=== PATIENT | female | born 1985 | race Caucasian/White ===

== ENCOUNTER 2022-05-03 13:57 | Inpatient (IN) | payer OTHER ==
[2022-05-03 15:41] VITALS: BMI 20.5
[2022-05-03] MEDS ORDERED: NALOXONE HCL (KLOXXADO) 8 MG SPRAY NS PRN (20:08)
[2022-05-03] MEDS ORDERED: LORazepam 1 MG TABLET PO PRN (20:08)
[2022-05-03] MEDS ORDERED: POLYETHYLENE GLYCOL (HEALTHYLAX) 3350 17 GM PACKET PO PRN (20:08)
[2022-05-03] MEDS ORDERED: IBUPROFEN 400 MG TABLET (FP) PO PRN (20:08)
[2022-05-03] MEDS ORDERED: MAGNESIUM HYDROX 2400MG/30ML ORAL SUSPENSION 30 ML CUP PO PRN (20:08)
[2022-05-03] MEDS ORDERED: ACETAMINOPHEN 325 MG TABLET (FP) PO PRN (20:08)
[2022-05-03] MEDS ORDERED: BISMUTH SUBSALICYLATE 524 MG/30 ML PO PRN (20:08)
[2022-05-03] MEDS ORDERED: LOPERAMIDE HCL 2 MG CAPSULE PO PRN (20:08)
[2022-05-03] MEDS ORDERED: MAG HYDROX/AL HYDROX/SIMETH 30 ML UNIT-DOSE CUP PO PRN (20:08)
[2022-05-03] MEDS ORDERED: DICYCLOMINE HCL 10 MG CAPSULE PO PRN (20:08)
[2022-05-03] MEDS ORDERED: ONDANSETRON *ODT* 4 MG TABLET SL PRN (20:08)
[2022-05-03] MEDS ORDERED: LORazepam 2 MG TABLET ONE (20:22)
[2022-05-03] MEDS: LORazepam 2 MG TABLET PO SCH ×2 (20:26→22:21)
[2022-05-03] MEDS: ALBUTEROL SO4 HFA INHALER IH SCH (20:49)
[2022-05-03] MEDS: ACETAMINOPHEN 325 MG TABLET (FP) PO PRN (20:57)
[2022-05-03] MEDS: NICOTINE POLACRILEX 4 MG GUM BUC PRN (21:30)
[2022-05-03] MEDS: THIAMINE HCL 100 MG TABLET (FP) PO SCH (22:20)
[2022-05-03] MEDS: MELATONIN 5 MG TABLETS PO SCH (22:20)
[2022-05-03] MEDS: levETIRAcetam 500 MG TABLET (FP) PO SCH (22:21)
[2022-05-03] MEDS: METHOCARBAMOL 500 MG TABLET PO PRN (22:22)
[2022-05-03] MEDS: hydrOXYzine PAMOATE 25 MG CAPSULE (FP) PO PRN (22:22)
[2022-05-04] MEDS: ALBUTEROL SO4 HFA INHALER IH SCH ×3 (02:20→13:46)
[2022-05-04] MEDS: LORazepam 2 MG TABLET PO SCH ×4 (05:20→22:12)
[2022-05-04] MEDS: hydrOXYzine PAMOATE 25 MG CAPSULE (FP) PO PRN (05:21)
[2022-05-04] MEDS: METHOCARBAMOL 500 MG TABLET PO PRN (05:21)
[2022-05-04] MEDS: NICOTINE POLACRILEX 2 MG GUM BUC PRN ×3 (05:24→23:12)
[2022-05-04] MEDS: BENZOCAINE/MENTHOL (CHLORASEPTIC ) LOZENGE MM PRN ×3 (05:24→23:11)
[2022-05-04] MEDS ORDERED: methaDONE HCL 10 MG TABLET PO ONE (10:04)
[2022-05-04] MEDS: levETIRAcetam 500 MG TABLET (FP) PO SCH ×2 (10:31→22:11)
[2022-05-04] MEDS: PRENATAL VITAMINS W/ FOLIC ACID TABLET (FP) PO SCH (10:31)
[2022-05-04] MEDS: NICOTINE POLACRILEX 4 MG GUM BUC PRN ×2 (10:35→14:36)
[2022-05-04] MEDS ORDERED: ALBUTEROL SO4 HFA INHALER IH PRN (18:44)
[2022-05-04] MEDS ORDERED: OLANZapine 10 MG TABLET PO SCH (22:00)
[2022-05-04] MEDS: MELATONIN 5 MG TABLETS PO SCH (22:11)
[2022-05-04] MEDS: OLANZapine 10 MG TABLET PO SCH (22:12)
[2022-05-04] MEDS: THIAMINE HCL 100 MG TABLET (FP) PO SCH (22:12)
[2022-05-05] MEDS: LORazepam 1 MG TABLET PO SCH ×4 (06:19→22:24)
[2022-05-05] MEDS: ACETAMINOPHEN 325 MG TABLET (FP) PO PRN (06:22)
[2022-05-05] MEDS: NICOTINE POLACRILEX 4 MG GUM BUC PRN ×4 (06:23→22:26)
[2022-05-05] MEDS ORDERED: methaDONE HCL 40 MG DISPERSABLE TABLET PO ONE (09:24)
[2022-05-05] MEDS: levETIRAcetam 500 MG TABLET (FP) PO SCH ×2 (10:06→22:22)
[2022-05-05] MEDS: PRENATAL VITAMINS W/ FOLIC ACID TABLET (FP) PO SCH (10:06)
[2022-05-05] MEDS: hydrOXYzine PAMOATE 25 MG CAPSULE (FP) PO PRN ×2 (10:06→22:23)
[2022-05-05] MEDS: BENZOCAINE/MENTHOL (CHLORASEPTIC ) LOZENGE MM PRN ×3 (10:43→22:50)
[2022-05-05 11:18] LABS: HEMATOCRIT 34.2 % (32.4-45.2); MCH 25.8 pg (25.7-33.7); MCHC 32.1 g/dl (32.0-36.0); MEAN CELL VOLUME 80.2 fl (80-96); MEAN PLT VOLUME 8.5 fl (7.5-11.1); PLATELET COUNT 345 10^3/uL (134-434); RBC 4.26 M/mm3 (3.60-5.2); RDW 14.9 % (11.6-15.6); WHITE BLOOD COUNT 6.2 K/mm3 (4.0-10.0)
[2022-05-05 11:57] LABS: BLOOD UREA NITROGEN 6.5 mg/dL (7-18); CALCIUM 9.3 mg/dL (8.5-10.1); SYPHILIS W/ RPR CONF NON-REACTIVE (NONREACTIVE)
[2022-05-05 11:58] LABS: ALBUMIN 3.2 g/dl (3.4-5.0)
[2022-05-05 12:01] LABS: CREATININE 0.7 mg/dL (0.55-1.3)
[2022-05-05 12:02] LABS: BILIRUBIN,TOTAL 0.2 mg/dL (0.2-1); TOT PROT 7.6 g/dl (6.4-8.2)
[2022-05-05 14:42] LABS: HIV INTERPRETATION NEGATIVE (NEGATIVE)
[2022-05-05] MEDS: NICOTINE POLACRILEX 2 MG GUM BUC PRN (20:34)
[2022-05-05] MEDS: OLANZapine 10 MG TABLET PO SCH (22:23)
[2022-05-05] MEDS: MELATONIN 5 MG TABLETS PO SCH (22:24)
[2022-05-05] MEDS: THIAMINE HCL 100 MG TABLET (FP) PO SCH (22:25)
[2022-05-06] MEDS ORDERED: LORazepam 0.5 MG TABLET PO PRN
[2022-05-06] MEDS: LORazepam 0.5 MG TABLET PO SCH ×4 (06:06→22:31)
[2022-05-06] MEDS: methaDONE HCL 40 MG DISPERSABLE TABLET PO SCH (06:07)
[2022-05-06] MEDS: NICOTINE POLACRILEX 4 MG GUM BUC PRN (06:10)
[2022-05-06] MEDS: ACETAMINOPHEN 325 MG TABLET (FP) PO PRN (06:10)
[2022-05-06] MEDS: NICOTINE POLACRILEX 2 MG GUM BUC PRN ×2 (08:52→12:57)
[2022-05-06] MEDS: levETIRAcetam 500 MG TABLET (FP) PO SCH ×2 (10:46→22:28)
[2022-05-06] MEDS: PRENATAL VITAMINS W/ FOLIC ACID TABLET (FP) PO SCH (10:46)
[2022-05-06] MEDS: METHOCARBAMOL 500 MG TABLET PO PRN ×2 (10:46→17:38)
[2022-05-06] MEDS: LACTULOSE 20 GM/30 ML UDC (FOR ORAL USE ONLY) PO SCH ×4 (10:47→22:29)
[2022-05-06] MEDS: BENZOCAINE/MENTHOL (CHLORASEPTIC ) LOZENGE MM PRN (12:54)
[2022-05-06] MEDS: IBUPROFEN 600 MG TABLET (FP) PO PRN (18:51)
[2022-05-06] MEDS: THIAMINE HCL 100 MG TABLET (FP) PO SCH (22:26)
[2022-05-06] MEDS: hydrOXYzine PAMOATE 25 MG CAPSULE (FP) PO PRN (22:26)
[2022-05-06] MEDS: MELATONIN 5 MG TABLETS PO SCH (22:27)
[2022-05-06] MEDS: OLANZapine 10 MG TABLET PO SCH (22:27)
[2022-05-06] MEDS: VITAMINS A AND D TOPICAL OINTMENT 60 GM TUBE TP SCH (22:29)
[2022-05-07] MEDS ORDERED: LORazepam 0.5 MG TABLET PO ONE (05:00)
[2022-05-07] MEDS: methaDONE HCL 40 MG DISPERSABLE TABLET PO SCH (05:37)
[2022-05-07] MEDS: NICOTINE POLACRILEX 2 MG GUM BUC PRN ×3 (05:38→15:44)
[2022-05-07] MEDS: LACTULOSE 20 GM/30 ML UDC (FOR ORAL USE ONLY) PO SCH ×2 (09:42→14:51)
[2022-05-07] MEDS: PRENATAL VITAMINS W/ FOLIC ACID TABLET (FP) PO SCH (09:42)
[2022-05-07] MEDS: levETIRAcetam 500 MG TABLET (FP) PO SCH (09:42)
[2022-05-07] MEDS: VITAMINS A AND D TOPICAL OINTMENT 60 GM TUBE TP SCH (09:44)
[2022-05-07] MEDS: IBUPROFEN 600 MG TABLET (FP) PO PRN (13:31)
[2022-05-07 14:03] VITALS: BP 120/68; PULSE 95; RESP 16; TEMP 97.7
== END 2022-05-07 15:53 | disposition home or self-care (01) | DRG 773 ==
LOC: YASAS 13:57 → Y6N 20:16
PROVIDERS: ADMIT Allergy & Immunology; ATTEND Surgery
PROC: HZ2ZZZZ Detoxification Services for Substance Abuse Treatment (ICD-10-PCS; principal; 2022-05-03)
DX: F10.230 Alcohol dependence with withdrawal, uncomplicated (principal); F13.230 Sedative, hypnotic or anxiolytic dependence with withdrawal, uncomplicated; F11.20 Opioid dependence, uncomplicated; F14.20 Cocaine dependence, uncomplicated; F12.20 Cannabis dependence, uncomplicated; F17.210 Nicotine dependence, cigarettes, uncomplicated; F19.24 Other psychoactive substance dependence with psychoactive substance-induced mood disorder; F20.9 Schizophrenia, unspecified; F21 Schizotypal disorder; J45.20 Mild intermittent asthma, uncomplicated; B18.2 Chronic viral hepatitis C; R79.89 Other specified abnormal findings of blood chemistry
CPT/HCPCS: 36415; 80053; 80177; 81025; 82140; 85027; 86780; 87389; 87811; C9803-CS; U0003; U0005

== ENCOUNTER 2022-07-07 17:12 | Inpatient (IN) | payer OTHER ==
[2022-07-07 17:49] VITALS: BMI 25.8
[2022-07-07] MEDS ORDERED: HYDROmorphone HCl 2 MG/ML VIAL IVPUSH ONE (18:27)
[2022-07-07] MEDS ORDERED: LIDOCAINE HCL 1%, 10 MG/ML (10ML VIAL) MDV ONE (18:33)
[2022-07-07] MEDS ORDERED: HYDROmorphone HCl 2 MG/ML VIAL ONE ×2 (18:41→19:52)
[2022-07-07] MEDS ORDERED: CLINDAMYCIN 600MG PREMIX IVPB 600 MG/50 ML BAG IVPB ONE ×2 (19:04→19:20)
[2022-07-07] MEDS ORDERED: PIPERACILLIN/TAZOB 4.5 GM 4.5 GM in DEXTROSE 5%-WATER 100 ML IVPB ONE (19:04)
[2022-07-07] MEDS ORDERED: VANCOMYCIN/WATER 1,250 MG/250 ML BAG (RESTRICTED TO ID ONLY) IVPB ONE (19:05)
[2022-07-07 19:11] LABS: BASO % 0.2 % (0-2.0); EOS % 1.3 % (0-4.5); HEMATOCRIT 35.6 % (32.4-45.2); HEMOGLOBIN 11.7 GM/dL (10.7-15.3); LYMPH % 18.9 % (8-40); MCH 25.5 pg (25.7-33.7); MEAN CELL VOLUME 77.3 fl (80-96); MEAN PLT VOLUME 7.6 fl (7.5-11.1); MONO % 7.3 % (3.8-10.2); NEUT % 72.3 % (42.8-82.8); PLATELET COUNT 316 10^3/uL (134-434); RBC 4.61 M/mm3 (3.60-5.2); RDW 15.6 % (11.6-15.6); WHITE BLOOD COUNT 8.2 K/mm3 (4.0-10.0)
[2022-07-07] MEDS ORDERED: PIPERACILLIN/TAZOB 4.5 GM 4.5 GM/100 ML BAG IVPB ONE (19:20)
[2022-07-07] MEDS ORDERED: VANCOMYCIN/WATER 1250 MG 1,250 MG/250 ML BAG IVPB ONE (19:20)
[2022-07-07 19:41] LABS: ALBUMIN 3.7 g/dl (3.4-5.0)
[2022-07-07 19:44] LABS: CREATININE 0.7 mg/dL (0.55-1.3)
[2022-07-07 19:45] LABS: BILIRUBIN,TOTAL 0.5 mg/dL (0.2-1); TOT PROT 7.8 g/dl (6.4-8.2)
[2022-07-07] MEDS ORDERED: HYDROmorphone HCl 2 MG/ML VIAL IVPUSH STA (19:58)
[2022-07-07] MEDS ORDERED: hydrOXYzine PAMOATE 50 MG CAPSULE (FP) PO ONE (22:19)
[2022-07-07] MEDS ORDERED: LORazepam 1 MG TABLET PO PRN (22:34)
[2022-07-07] MEDS ORDERED: EMTRICITABINE 200MG/TENOFOVIR 300MG PO ONE (22:59)
[2022-07-07] MEDS ORDERED: ALBUTEROL SO4 HFA INHALER IH PRN (23:04)
[2022-07-07] MEDS: LORazepam 1 MG TABLET PO SCH (23:28)
[2022-07-07] MEDS: RALTEGRAVIR POTASSIUM 400 MG TAB PO SCH (23:45)
[2022-07-08] MEDS: PIPERACILLIN/TAZOB 3.375 GM 3.375 GM in DEXTROSE 5%-WATER - 50 ML IVPB SCH ×4 (00:07→17:25)
[2022-07-08] MEDS: LORazepam 1 MG TABLET PO SCH ×4 (05:13→22:28)
[2022-07-08] MEDS ORDERED: busPIRone HCL 10 MG TABLET (FP) PO SCH (06:00)
[2022-07-08] MEDS ORDERED: methaDONE HCL 40 MG DISPERSABLE TABLET PO ONE (07:45)
[2022-07-08 09:14] LABS: HEMATOCRIT 30.2 % (32.4-45.2); HEMOGLOBIN 10.2 GM/dL (10.7-15.3); MCH 26.5 pg (25.7-33.7); MCHC 33.6 g/dl (32.0-36.0); MEAN CELL VOLUME 78.9 fl (80-96); MEAN PLT VOLUME 7.6 fl (7.5-11.1); PLATELET COUNT 256 10^3/uL (134-434); RBC 3.84 M/mm3 (3.60-5.2); RDW 15.8 % (11.6-15.6); WHITE BLOOD COUNT 4.4 K/mm3 (4.0-10.0)
[2022-07-08 09:54] LABS: BLOOD UREA NITROGEN 13.6 mg/dL (7-18)
[2022-07-08] MEDS: NICOTINE 14 MG/24 HOURS TOPICAL PATCH TD SCH (09:56)
[2022-07-08 10:00] LABS: PHOSPHOROUS 3.6 mg/dL (2.5-4.9)
[2022-07-08] MEDS ORDERED: VANCOMYCIN 1 GM in D5W (PRE-DOCKED) 1,000 MG/250 ML IVPB SCH ×2 (10:00→22:00)
[2022-07-08] MEDS ORDERED: VANCOMYCIN 1 GM/200 ML PREMIX BAG (RESTRICTED TO ID ONLY) IVPB SCH (10:00)
[2022-07-08 10:01] LABS: CREATININE 0.6 mg/dL (0.55-1.3)
[2022-07-08 10:02] LABS: BILIRUBIN,TOTAL 0.3 mg/dL (0.2-1); TOT PROT 6.6 g/dl (6.4-8.2)
[2022-07-08] MEDS: ENOXAPARIN NA (PORCINE) 40 MG/0.4 ML DISP.SYRIN SQ SCH (10:02)
[2022-07-08 10:04] LABS: ALBUMIN 2.9 g/dl (3.4-5.0)
[2022-07-08] MEDS: EMTRICITABINE 200MG/TENOFOVIR 300MG PO SCH (11:22)
[2022-07-08] MEDS: RALTEGRAVIR POTASSIUM 400 MG TAB PO SCH (11:23)
[2022-07-08 12:02] LABS: SYPHILIS W/ RPR CONF NON-REACTIVE (NONREACTIVE)
[2022-07-08] MEDS: KETOROLAC TROMETHAMINE 15 MG/ML VIAL IVPUSH PRN ×2 (12:23→18:50)
[2022-07-08 12:31] LABS: HIV INTERPRETATION NEGATIVE (NEGATIVE)
[2022-07-08] MEDS: busPIRone HCL 5 MG TABLET PO SCH ×2 (14:32→21:30)
[2022-07-08] MEDS: levETIRAcetam 500 MG TABLET (FP) PO SCH ×2 (14:32→21:30)
[2022-07-08] MEDS: VANCOMYCIN/WATER FOR INJ (PEG) 1,000 MG/200 ML BAG IVPB SCH (18:04)
[2022-07-08] MEDS: SERTRALINE HCL 50 MG TABLET (FP) PO SCH (21:30)
[2022-07-08] MEDS: traZODone HCL 100 MG TABLET (FP) PO SCH (21:30)
[2022-07-08] MEDS: ATORVASTATIN CA 10 MG TABLET (FP) PO SCH (21:30)
[2022-07-08] MEDS ORDERED: traZODone HCL 100 MG TABLET (FP) PO SCH (22:00)
[2022-07-08] MEDS ORDERED: OLANZapine 7.5 MG TABLET PO SCH (22:00)
[2022-07-08] MEDS: OLANZAPINE 5 MG, OLANZAPINE 2.5 MG PO SCH (22:29)
[2022-07-09] MEDS: PIPERACILLIN/TAZOB 3.375 GM 3.375 GM in DEXTROSE 5%-WATER - 50 ML IVPB SCH ×2 (02:11→09:26)
[2022-07-09] MEDS: LORazepam 1 MG TABLET PO SCH ×4 (05:27→23:10)
[2022-07-09] MEDS: methaDONE HCL 40 MG DISPERSABLE TABLET PO SCH (05:27)
[2022-07-09] MEDS: VANCOMYCIN/WATER FOR INJ (PEG) 1,000 MG/200 ML BAG IVPB SCH (05:28)
[2022-07-09] MEDS: busPIRone HCL 5 MG TABLET PO SCH ×3 (05:28→21:23)
[2022-07-09] MEDS: EMTRICITABINE 200MG/TENOFOVIR 300MG PO SCH (09:26)
[2022-07-09] MEDS: NICOTINE 14 MG/24 HOURS TOPICAL PATCH TD SCH (09:26)
[2022-07-09] MEDS: levETIRAcetam 500 MG TABLET (FP) PO SCH ×2 (09:26→21:24)
[2022-07-09] MEDS: KETOROLAC TROMETHAMINE 15 MG/ML VIAL IVPUSH PRN ×2 (09:26→20:04)
[2022-07-09] MEDS: ENOXAPARIN NA (PORCINE) 40 MG/0.4 ML DISP.SYRIN SQ SCH (09:34)
[2022-07-09 10:54] LABS: BASO % 0.6 % (0-2.0); EOS % 3.1 % (0-4.5); HEMATOCRIT 30.1 % (32.4-45.2); HEMOGLOBIN 10.2 GM/dL (10.7-15.3); LYMPH % 41.7 % (8-40); MCH 26.1 pg (25.7-33.7); MCHC 33.8 g/dl (32.0-36.0); MEAN CELL VOLUME 77.3 fl (80-96); MEAN PLT VOLUME 7.7 fl (7.5-11.1); MONO % 8.8 % (3.8-10.2); NEUT % 45.8 % (42.8-82.8); PLATELET COUNT 284 10^3/uL (134-434); RBC 3.89 M/mm3 (3.60-5.2); RDW 15.3 % (11.6-15.6); WHITE BLOOD COUNT 2.9 K/mm3 (4.0-10.0)
[2022-07-09 11:13] LABS: CALCIUM 7.9 mg/dL (8.5-10.1)
[2022-07-09 11:14] LABS: ALBUMIN 2.7 g/dl (3.4-5.0); BLOOD UREA NITROGEN 11.5 mg/dL (7-18); MAGNESIUM 2.1 mg/dL (1.8-2.4)
[2022-07-09 11:17] LABS: CREATININE 0.5 mg/dL (0.55-1.3); PHOSPHOROUS 3.2 mg/dL (2.5-4.9)
[2022-07-09 11:18] LABS: BILIRUBIN,TOTAL 0.2 mg/dL (0.2-1); TOT PROT 6.6 g/dl (6.4-8.2)
[2022-07-09] MEDS: AMPICILLIN NA/SULBACTAM NA 3 GM in SODIUM CHLORIDE 100 ML IVPB SCH ×2 (14:13→20:09)
[2022-07-09] MEDS: traZODone HCL 100 MG TABLET (FP) PO SCH (21:24)
[2022-07-09] MEDS: ATORVASTATIN CA 10 MG TABLET (FP) PO SCH (21:24)
[2022-07-09] MEDS: SERTRALINE HCL 50 MG TABLET (FP) PO SCH (21:24)
[2022-07-09] MEDS: OLANZAPINE 5 MG, OLANZAPINE 2.5 MG PO SCH (21:26)
[2022-07-10] MEDS ORDERED: LORazepam 0.5 MG TABLET PO PRN
[2022-07-10] MEDS: AMPICILLIN NA/SULBACTAM NA 3 GM in SODIUM CHLORIDE 100 ML IVPB SCH ×4 (03:58→20:24)
[2022-07-10] MEDS: busPIRone HCL 5 MG TABLET PO SCH ×3 (05:52→21:39)
[2022-07-10] MEDS: LORazepam 0.5 MG TABLET PO SCH ×4 (05:52→23:36)
[2022-07-10] MEDS: methaDONE HCL 40 MG DISPERSABLE TABLET PO SCH (05:52)
[2022-07-10] MEDS: ENOXAPARIN NA (PORCINE) 40 MG/0.4 ML DISP.SYRIN SQ SCH (09:02)
[2022-07-10] MEDS: NICOTINE 14 MG/24 HOURS TOPICAL PATCH TD SCH (09:03)
[2022-07-10] MEDS: levETIRAcetam 500 MG TABLET (FP) PO SCH ×2 (09:03→21:39)
[2022-07-10] MEDS: KETOROLAC TROMETHAMINE 15 MG/ML VIAL IVPUSH PRN ×2 (11:19→23:36)
[2022-07-10 11:40] LABS: BASO % 0.6 % (0-2.0); EOS % 2.3 % (0-4.5); HEMATOCRIT 30.7 % (32.4-45.2); LYMPH % 43.8 % (8-40); MCH 25.2 pg (25.7-33.7); MCHC 32.6 g/dl (32.0-36.0); MEAN CELL VOLUME 77.2 fl (80-96); MEAN PLT VOLUME 7.4 fl (7.5-11.1); MONO % 7.3 % (3.8-10.2); PLATELET COUNT 295 10^3/uL (134-434); RBC 3.98 M/mm3 (3.60-5.2); RDW 15.2 % (11.6-15.6); WHITE BLOOD COUNT 3.1 K/mm3 (4.0-10.0)
[2022-07-10 12:02] LABS: ALBUMIN 2.7 g/dl (3.4-5.0); CALCIUM 8.3 mg/dL (8.5-10.1); MAGNESIUM 1.8 mg/dL (1.8-2.4)
[2022-07-10 12:05] LABS: CREATININE 0.6 mg/dL (0.55-1.3); PHOSPHOROUS 2.8 mg/dL (2.5-4.9)
[2022-07-10 12:07] LABS: BILIRUBIN,TOTAL 0.2 mg/dL (0.2-1); TOT PROT 6.5 g/dl (6.4-8.2)
[2022-07-10] MEDS: SERTRALINE HCL 50 MG TABLET (FP) PO SCH (21:39)
[2022-07-10] MEDS: ATORVASTATIN CA 10 MG TABLET (FP) PO SCH (21:39)
[2022-07-10] MEDS: OLANZAPINE 5 MG, OLANZAPINE 2.5 MG PO SCH (21:39)
[2022-07-10] MEDS: traZODone HCL 100 MG TABLET (FP) PO SCH (21:40)
[2022-07-11] MEDS: AMPICILLIN NA/SULBACTAM NA 3 GM in SODIUM CHLORIDE 100 ML IVPB SCH ×4 (02:38→21:00)
[2022-07-11] MEDS ORDERED: LORazepam 0.5 MG TABLET PO ONE (05:00)
[2022-07-11] MEDS: methaDONE HCL 40 MG DISPERSABLE TABLET PO SCH (05:57)
[2022-07-11] MEDS: busPIRone HCL 5 MG TABLET PO SCH ×3 (05:58→21:01)
[2022-07-11] MEDS: NICOTINE 14 MG/24 HOURS TOPICAL PATCH TD SCH (09:01)
[2022-07-11] MEDS: levETIRAcetam 500 MG TABLET (FP) PO SCH ×2 (09:01→21:01)
[2022-07-11] MEDS: KETOROLAC TROMETHAMINE 15 MG/ML VIAL IVPUSH PRN ×2 (09:01→18:42)
[2022-07-11] MEDS: ENOXAPARIN NA (PORCINE) 40 MG/0.4 ML DISP.SYRIN SQ SCH (09:02)
[2022-07-11 09:22] LABS: BASO % 0.6 % (0-2.0); HEMATOCRIT 33.2 % (32.4-45.2); HEMOGLOBIN 10.7 GM/dL (10.7-15.3); LYMPH % 45.3 % (8-40); MCH 24.8 pg (25.7-33.7); MCHC 32.2 g/dl (32.0-36.0); MEAN PLT VOLUME 7.5 fl (7.5-11.1); MONO % 6.7 % (3.8-10.2); NEUT % 45.4 % (42.8-82.8); PLATELET COUNT 325 10^3/uL (134-434); RBC 4.31 M/mm3 (3.60-5.2); RDW 15.2 % (11.6-15.6); WHITE BLOOD COUNT 3.5 K/mm3 (4.0-10.0)
[2022-07-11 09:52] LABS: CALCIUM 8.8 mg/dL (8.5-10.1); MAGNESIUM 1.9 mg/dL (1.8-2.4)
[2022-07-11 09:53] LABS: ALBUMIN 2.8 g/dl (3.4-5.0)
[2022-07-11 09:54] LABS: CREATININE 0.6 mg/dL (0.55-1.3); PHOSPHOROUS 3.6 mg/dL (2.5-4.9)
[2022-07-11 09:56] LABS: TOT PROT 6.7 g/dl (6.4-8.2)
[2022-07-11 09:57] LABS: BILIRUBIN,TOTAL 0.1 mg/dL (0.2-1)
[2022-07-11 10:01] LABS: BLOOD UREA NITROGEN 13.5 mg/dL (7-18)
[2022-07-11] MEDS: traZODone HCL 100 MG TABLET (FP) PO SCH (21:01)
[2022-07-11] MEDS: OLANZAPINE 5 MG, OLANZAPINE 2.5 MG PO SCH (21:01)
[2022-07-11] MEDS: ATORVASTATIN CA 10 MG TABLET (FP) PO SCH (21:01)
[2022-07-11] MEDS: SERTRALINE HCL 50 MG TABLET (FP) PO SCH (21:01)
[2022-07-12] MEDS: AMPICILLIN NA/SULBACTAM NA 3 GM in SODIUM CHLORIDE 100 ML IVPB SCH ×3 (03:00→14:15)
[2022-07-12] MEDS: methaDONE HCL 40 MG DISPERSABLE TABLET PO SCH (05:52)
[2022-07-12] MEDS: busPIRone HCL 5 MG TABLET PO SCH ×2 (05:52→14:14)
[2022-07-12] MEDS ORDERED: AMPICILLIN NA/SULBACTAM NA 3 GM VIAL ONE (09:01)
[2022-07-12] MEDS: levETIRAcetam 500 MG TABLET (FP) PO SCH (09:17)
[2022-07-12] MEDS: NICOTINE 14 MG/24 HOURS TOPICAL PATCH TD SCH (09:18)
[2022-07-12] MEDS: ENOXAPARIN NA (PORCINE) 40 MG/0.4 ML DISP.SYRIN SQ SCH (09:18)
[2022-07-12] MEDS: KETOROLAC TROMETHAMINE 15 MG/ML VIAL IVPUSH PRN (09:25)
[2022-07-12 09:27] LABS: BASO % 0.5 % (0-2.0); EOS % 1.8 % (0-4.5); HEMATOCRIT 32.8 % (32.4-45.2); HEMOGLOBIN 10.9 GM/dL (10.7-15.3); MCH 25.5 pg (25.7-33.7); MCHC 33.2 g/dl (32.0-36.0); MEAN CELL VOLUME 76.6 fl (80-96); MEAN PLT VOLUME 7.4 fl (7.5-11.1); MONO % 6.8 % (3.8-10.2); NEUT % 45.9 % (42.8-82.8); PLATELET COUNT 321 10^3/uL (134-434); RBC 4.28 M/mm3 (3.60-5.2); RDW 14.8 % (11.6-15.6); WHITE BLOOD COUNT 3.7 K/mm3 (4.0-10.0)
[2022-07-12 09:57] LABS: ALBUMIN 2.9 g/dl (3.4-5.0)
[2022-07-12 09:58] LABS: MAGNESIUM 1.9 mg/dL (1.8-2.4)
[2022-07-12 09:59] LABS: CREATININE 0.6 mg/dL (0.55-1.3); PHOSPHOROUS 4.4 mg/dL (2.5-4.9)
[2022-07-12 10:01] LABS: BILIRUBIN,TOTAL 0.2 mg/dL (0.2-1); TOT PROT 6.9 g/dl (6.4-8.2)
[2022-07-12 14:43] VITALS: BP 94/51; PULSE 59; RESP 18; TEMP 98.1
== END 2022-07-12 17:30 | disposition home or self-care (01) | DRG 383 ==
LOC: JER 17:12 → JERBED 19:19 → OBSVTOIN 22:17 → J6S 22:42
PROVIDERS: ADMIT Internal Medicine; ATTEND Internal Medicine
PROC: 0X9 Anatomical Regions, Upper Extremities, Drainage (ICD-10-PCS; principal; 2022-07-07)
DX: L02.414 Cutaneous abscess of left upper limb (principal); F20.9 Schizophrenia, unspecified; F10.10 Alcohol abuse, uncomplicated; F12.10 Cannabis abuse, uncomplicated; G40.909 Epilepsy, unspecified, not intractable, without status epilepticus; F11.20 Opioid dependence, uncomplicated; F19.20 Other psychoactive substance dependence, uncomplicated; E83.51 Hypocalcemia; F39 Unspecified mood [affective] disorder; B95.4 Other streptococcus as the cause of diseases classified elsewhere; E88.09 Other disorders of plasma-protein metabolism, not elsewhere classified; F41.8 Other specified anxiety disorders; Z20.828 Contact with and (suspected) exposure to other viral communicable diseases
CPT/HCPCS: 0241U-QW; 36415; 80053; 83735; 84100; 85025; 85027; 85651; 86140; 86705; 86780; 86803; 87040; 87070; 87076; 87205; 87340; 87389; 87517; 87522; 87536; 93005; 93010; 93306-TC; 99285-25; G0378; G0480

== ENCOUNTER 2022-07-31 17:40 | Inpatient (IN) | payer OTHER ==
[2022-07-31 19:58] VITALS: BMI 23.0
[2022-07-31] MEDS ORDERED: diazePAM 5 MG TABLET PO ONE (21:56)
[2022-07-31] MEDS ORDERED: LORazepam 2 MG TABLET PO ONE (22:01)
[2022-07-31] MEDS ORDERED: LORazepam 2 MG TABLET ONE (22:11)
[2022-08-01] MEDS ORDERED: LOPERAMIDE HCL 2 MG CAPSULE PO PRN (03:40)
[2022-08-01] MEDS ORDERED: BENZONATATE 200 MG CAPSULE PO PRN (03:40)
[2022-08-01] MEDS ORDERED: ONDANSETRON *ODT* 4 MG TABLET SL PRN (03:40)
[2022-08-01] MEDS ORDERED: DICYCLOMINE HCL 10 MG CAPSULE PO PRN (03:40)
[2022-08-01] MEDS ORDERED: NALOXONE HCL (KLOXXADO) 8 MG SPRAY NS PRN (03:40)
[2022-08-01] MEDS ORDERED: MAG HYDROX/AL HYDROX/SIMETH 30 ML UNIT-DOSE CUP PO PRN (03:40)
[2022-08-01] MEDS ORDERED: METHOCARBAMOL 500 MG TABLET PO PRN (03:40)
[2022-08-01] MEDS ORDERED: BISMUTH SUBSALICYLATE 524 MG/30 ML PO PRN (03:40)
[2022-08-01] MEDS ORDERED: MAGNESIUM HYDROX 2400MG/30ML ORAL SUSPENSION 30 ML CUP PO PRN (03:40)
[2022-08-01] MEDS ORDERED: guaiFENesin 600 MG TABLET.ER (FP) PO PRN (03:40)
[2022-08-01] MEDS ORDERED: BENZOCAINE/MENTHOL (CHLORASEPTIC ) LOZENGE MM PRN (03:40)
[2022-08-01] MEDS ORDERED: POLYETHYLENE GLYCOL (HEALTHYLAX) 3350 17 GM PACKET PO PRN (03:40)
[2022-08-01] MEDS ORDERED: IBUPROFEN 400 MG TABLET (FP) PO PRN (03:40)
[2022-08-01] MEDS ORDERED: NICOTINE 10 MG CARTRIDGE (INHALER) IH PRN (03:40)
[2022-08-01] MEDS ORDERED: NALOXONE HCL 0.4 MG/ML VIAL IM PRN (03:40)
[2022-08-01] MEDS ORDERED: diazePAM 5 MG TABLET PO PRN (03:46)
[2022-08-01] MEDS ORDERED: diazePAM 5 MG TABLET PO SCH (05:00)
[2022-08-01] MEDS ORDERED: diazePAM 5 MG TABLET ONE (05:23)
[2022-08-01] MEDS ORDERED: ALBUTEROL SO4 HFA INHALER IH PRN (09:16)
[2022-08-01] MEDS ORDERED: methaDONE HCL 40 MG DISPERSABLE TABLET PO ONE (10:00)
[2022-08-01] MEDS ORDERED: PRENATAL VITAMINS W/ FOLIC ACID TABLET (FP) PO ONE (10:41)
[2022-08-01] MEDS: PRENATAL VITAMINS W/ FOLIC ACID TABLET (FP) PO SCH (10:44)
[2022-08-01] MEDS: levETIRAcetam 500 MG TABLET (FP) PO SCH ×2 (10:44→22:10)
[2022-08-01] MEDS: NICOTINE 14 MG/24 HOURS TOPICAL PATCH TD SCH (10:44)
[2022-08-01] MEDS: CLINDAMYCIN HCL 150 MG CAPSULE (FP) PO SCH ×4 (11:00→23:12)
[2022-08-01] MEDS: NICOTINE POLACRILEX 4 MG GUM BUC PRN ×4 (11:58→22:16)
[2022-08-01] MEDS: LORazepam 2 MG TABLET PO SCH ×3 (12:05→22:12)
[2022-08-01] MEDS: IBUPROFEN 600 MG TABLET (FP) PO PRN ×2 (15:26→22:12)
[2022-08-01] MEDS: LORazepam 1 MG TABLET PO PRN ×2 (15:27→19:46)
[2022-08-01] MEDS: ACETAMINOPHEN 325 MG TABLET (FP) PO PRN (19:24)
[2022-08-01] MEDS ORDERED: BACITRACIN ZINC 15 GM TUBE TOPICAL OINTMENT TP SCH (22:00)
[2022-08-01] MEDS ORDERED: MELATONIN 5 MG TABLETS PO SCH (22:00)
[2022-08-01] MEDS ORDERED: traZODone HCL 50 MG TABLET (FP) PO SCH (22:00)
[2022-08-01] MEDS: BACITRACIN 0.9 GM PACKET TP SCH (22:08)
[2022-08-01] MEDS: busPIRone HCL 10 MG TABLET (FP) PO SCH (22:09)
[2022-08-01] MEDS: ATORVASTATIN CA 10 MG TABLET (FP) PO SCH (22:09)
[2022-08-01] MEDS: THIAMINE HCL 100 MG TABLET (FP) PO SCH (22:10)
[2022-08-01] MEDS: OLANZapine 5 MG TABLET PO SCH (22:10)
[2022-08-02] MEDS: LORazepam 1 MG TABLET PO SCH ×4 (05:49→22:13)
[2022-08-02] MEDS: busPIRone HCL 10 MG TABLET (FP) PO SCH ×3 (05:49→22:13)
[2022-08-02] MEDS: CLINDAMYCIN HCL 150 MG CAPSULE (FP) PO SCH ×4 (05:49→23:20)
[2022-08-02] MEDS ORDERED: methaDONE HCL 10 MG TABLET PO ONE (06:00)
[2022-08-02] MEDS ORDERED: diazePAM 5 MG TABLET PO SCH (06:00)
[2022-08-02] MEDS: NICOTINE POLACRILEX 4 MG GUM BUC PRN ×5 (08:51→22:14)
[2022-08-02] MEDS: levETIRAcetam 500 MG TABLET (FP) PO SCH ×2 (10:19→22:13)
[2022-08-02] MEDS: PRENATAL VITAMINS W/ FOLIC ACID TABLET (FP) PO SCH (10:19)
[2022-08-02] MEDS: NICOTINE 14 MG/24 HOURS TOPICAL PATCH TD SCH (10:19)
[2022-08-02] MEDS: BACITRACIN 0.9 GM PACKET TP SCH ×2 (10:19→22:12)
[2022-08-02 11:19] LABS: MCH 25.4 pg (25.7-33.7); MCHC 33.2 g/dl (32.0-36.0); MEAN CELL VOLUME 76.6 fl (80-96); MEAN PLT VOLUME 8.1 fl (7.5-11.1); PLATELET COUNT 255 10^3/uL (134-434)
[2022-08-02 11:44] LABS: BLOOD UREA NITROGEN 11.8 mg/dL (7-18)
[2022-08-02 11:47] LABS: CREATININE 0.6 mg/dL (0.55-1.3)
[2022-08-02 11:48] LABS: TOT PROT 7.2 g/dl (6.4-8.2)
[2022-08-02 11:49] LABS: BILIRUBIN,TOTAL 0.3 mg/dL (0.2-1)
[2022-08-02] MEDS: LORazepam 1 MG TABLET PO PRN (20:01)
[2022-08-02] MEDS: THIAMINE HCL 100 MG TABLET (FP) PO SCH (22:13)
[2022-08-02] MEDS: traZODone HCL 100 MG TABLET (FP) PO SCH (22:13)
[2022-08-02] MEDS: OLANZapine 5 MG TABLET PO SCH (22:13)
[2022-08-02] MEDS: ATORVASTATIN CA 10 MG TABLET (FP) PO SCH (22:13)
[2022-08-03] MEDS ORDERED: LORazepam 0.5 MG TABLET PO PRN
[2022-08-03] MEDS: CLINDAMYCIN HCL 150 MG CAPSULE (FP) PO SCH ×4 (05:57→23:00)
[2022-08-03] MEDS: LORazepam 0.5 MG TABLET PO SCH ×4 (05:58→22:23)
[2022-08-03] MEDS: busPIRone HCL 10 MG TABLET (FP) PO SCH ×3 (05:58→22:21)
[2022-08-03] MEDS ORDERED: diazePAM 5 MG TABLET PO SCH (06:00)
[2022-08-03] MEDS ORDERED: methaDONE HCL 10 MG TABLET PO ONE (06:00)
[2022-08-03] MEDS: NICOTINE POLACRILEX 4 MG GUM BUC PRN ×4 (06:10→21:44)
[2022-08-03] MEDS: BACITRACIN 0.9 GM PACKET TP SCH ×2 (10:31→22:22)
[2022-08-03] MEDS: levETIRAcetam 500 MG TABLET (FP) PO SCH ×2 (10:31→22:21)
[2022-08-03] MEDS: PRENATAL VITAMINS W/ FOLIC ACID TABLET (FP) PO SCH (10:31)
[2022-08-03] MEDS: NICOTINE 14 MG/24 HOURS TOPICAL PATCH TD SCH (10:31)
[2022-08-03 12:57] VITALS: RESP 18
[2022-08-03] MEDS: IBUPROFEN 600 MG TABLET (FP) PO PRN (17:29)
[2022-08-03] MEDS: THIAMINE HCL 100 MG TABLET (FP) PO SCH (22:21)
[2022-08-03] MEDS: OLANZapine 5 MG TABLET PO SCH (22:21)
[2022-08-03] MEDS: ATORVASTATIN CA 10 MG TABLET (FP) PO SCH (22:21)
[2022-08-03] MEDS: traZODone HCL 100 MG TABLET (FP) PO SCH (22:21)
[2022-08-03] MEDS: ACETAMINOPHEN 325 MG TABLET (FP) PO PRN (22:25)
[2022-08-04] MEDS ORDERED: LORazepam 0.5 MG TABLET PO ONE (05:00)
[2022-08-04] MEDS: busPIRone HCL 10 MG TABLET (FP) PO SCH (05:55)
[2022-08-04] MEDS: CLINDAMYCIN HCL 150 MG CAPSULE (FP) PO SCH (05:55)
[2022-08-04] MEDS ORDERED: diazePAM 5 MG TABLET PO ONE (06:00)
[2022-08-04] MEDS ORDERED: methaDONE HCL 10 MG TABLET PO ONE (06:00)
[2022-08-04 09:19] VITALS: BP 115/75; PULSE 94; TEMP 97.1
[2022-08-04] MEDS: levETIRAcetam 500 MG TABLET (FP) PO SCH (10:18)
[2022-08-04] MEDS: PRENATAL VITAMINS W/ FOLIC ACID TABLET (FP) PO SCH (10:18)
[2022-08-04] MEDS: BACITRACIN 0.9 GM PACKET TP SCH (10:18)
[2022-08-04] MEDS: NICOTINE 14 MG/24 HOURS TOPICAL PATCH TD SCH (10:19)
== END 2022-08-04 11:18 | disposition home or self-care (01) | DRG 773 ==
LOC: YASAS 17:40 → Y3N 08-01 10:51
PROVIDERS: ADMIT Allergy & Immunology; ATTEND Surgery
PROC: HZ2ZZZZ Detoxification Services for Substance Abuse Treatment (ICD-10-PCS; principal; 2022-08-01)
DX: F10.230 Alcohol dependence with withdrawal, uncomplicated (principal); F11.20 Opioid dependence, uncomplicated; F13.20 Sedative, hypnotic or anxiolytic dependence, uncomplicated; F14.20 Cocaine dependence, uncomplicated; F15.20 Other stimulant dependence, uncomplicated; F12.20 Cannabis dependence, uncomplicated; F17.210 Nicotine dependence, cigarettes, uncomplicated; F19.282 Other psychoactive substance dependence with psychoactive substance-induced sleep disorder; F19.280 Other psychoactive substance dependence with psychoactive substance-induced anxiety disorder; F19.24 Other psychoactive substance dependence with psychoactive substance-induced mood disorder; F31.9 Bipolar disorder, unspecified; R56.1 Post traumatic seizures; J45.20 Mild intermittent asthma, uncomplicated; L02.414 Cutaneous abscess of left upper limb; Z91.410 Personal history of adult physical and sexual abuse
CPT/HCPCS: 36415; 80053; 81025; 85027; 99281-25; C9803-CS; U0003; U0005

== ENCOUNTER 2023-05-23 17:57 | Inpatient (IN) | payer OTHER ==
[2023-05-23 18:58] VITALS: BMI 20.5
[2023-05-23] MEDS ORDERED: POLYETHYLENE GLYCOL (HEALTHYLAX) 3350 17 GM PACKET PO PRN (21:46)
[2023-05-23] MEDS ORDERED: NALOXONE HCL 0.4 MG/ML VIAL IM PRN (21:46)
[2023-05-23] MEDS ORDERED: guaiFENesin 600 MG TABLET.ER (FP) PO PRN (21:46)
[2023-05-23] MEDS ORDERED: BENZOCAINE/MENTHOL (CHLORASEPTIC ) LOZENGE MM PRN (21:46)
[2023-05-23] MEDS ORDERED: MAG HYDROX/AL HYDROX/SIMETH 30 ML UNIT-DOSE CUP PO PRN (21:46)
[2023-05-23] MEDS ORDERED: BENZONATATE 200 MG CAPSULE PO PRN (21:46)
[2023-05-23] MEDS ORDERED: LOPERAMIDE HCL 2 MG CAPSULE PO PRN (21:46)
[2023-05-23] MEDS ORDERED: MAGNESIUM HYDROX 2400MG/30ML ORAL SUSPENSION 30 ML CUP PO PRN (21:46)
[2023-05-23] MEDS ORDERED: NALOXONE HCL (KLOXXADO) 8 MG SPRAY NS PRN (21:46)
[2023-05-23] MEDS ORDERED: IBUPROFEN 400 MG TABLET (FP) PO PRN (21:46)
[2023-05-23] MEDS ORDERED: BISMUTH SUBSALICYLATE 524 MG/30 ML PO PRN (21:46)
[2023-05-23] MEDS ORDERED: DICYCLOMINE HCL 10 MG CAPSULE PO PRN (21:46)
[2023-05-23] MEDS ORDERED: LORazepam 1 MG TABLET PO PRN (21:49)
[2023-05-23] MEDS ORDERED: ALBUTEROL SO4 HFA INHALER IH PRN (21:49)
[2023-05-24] MEDS ORDERED: levETIRAcetam 500 MG TABLET (FP) PO ONE (00:28)
[2023-05-24] MEDS ORDERED: MELATONIN 5 MG TABLETS ONE (00:28)
[2023-05-24] MEDS: ATORVASTATIN CA 10 MG TABLET (FP) PO SCH (00:32)
[2023-05-24] MEDS: levETIRAcetam 500 MG TABLET (FP) PO SCH (00:32)
[2023-05-24] MEDS: MELATONIN 5 MG TABLETS PO SCH (00:33)
[2023-05-24] MEDS: THIAMINE HCL 100 MG TABLET (FP) PO SCH (00:33)
[2023-05-24] MEDS: LORazepam 2 MG TABLET PO SCH (02:55)
[2023-05-24] MEDS: LORazepam 1 MG TABLET PO SCH (06:03)
[2023-05-24] MEDS: IBUPROFEN 600 MG TABLET (FP) PO PRN (06:03)
[2023-05-24] MEDS: PRENATAL VITAMINS W/ FOLIC ACID TABLET (FP) PO SCH (10:39)
[2023-05-24] MEDS: NICOTINE 21 MG/24 HOURS TOPICAL PATCH TD SCH (10:39)
[2023-05-24] MEDS: NICOTINE POLACRILEX 4 MG GUM BUC PRN (11:05)
[2023-05-24] MEDS: methaDONE HCL 40 MG DISPERSABLE TABLET PO SCH (11:05)
[2023-05-24 14:32] LABS: HEMATOCRIT 31.6 % (32.4-45.2); HEMOGLOBIN 10.2 GM/dL (10.7-15.3); MCH 23.4 pg (25.7-33.7); MCHC 32.2 g/dl (32.0-36.0); MEAN CELL VOLUME 72.7 fl (80-96); MEAN PLT VOLUME 8.7 fl (7.5-11.1); PLATELET COUNT 197 10^3/uL (134-434); RBC 4.35 M/mm3 (3.60-5.2); RDW 18.8 % (11.6-15.6); WHITE BLOOD COUNT 3.3 K/mm3 (4.0-10.0)
[2023-05-24 14:42] LABS: CHLORIDE 105 mmol/L (98-107); SODIUM 140 mmol/L (136-145)
[2023-05-24 15:19] LABS: ANION GAP 8 mmol/L (4-13); CALCIUM 8.6 mg/dL (8.5-10.1); CO2 26 mmol/L (21-32); GLUCOSE,RANDOM 91 mg/dL (74-106)
[2023-05-24 15:22] LABS: CREATININE 0.6 mg/dL (0.55-1.3)
[2023-05-24 15:23] LABS: BILIRUBIN,TOTAL 0.1 mg/dL (0.2-1)
[2023-05-24 15:24] LABS: SGOT/AST 29 U/L (15-37); TOT PROT 6.6 g/dl (6.4-8.2)
[2023-05-24 15:25] LABS: ALK PHOS 71 U/L (45-117)
[2023-05-24 15:33] LABS: BLOOD UREA NITROGEN 10.8 mg/dL (7-18)
[2023-05-24 15:35] LABS: SGPT/ALT 26 U/L (13-61)
[2023-05-24] MEDS: hydrOXYzine PAMOATE 25 MG CAPSULE (FP) PO PRN (16:58)
[2023-05-24] MEDS: diphenhydrAMINE HCL 25 MG CAPSULE (FP) PO PRN (18:08)
[2023-05-24] MEDS: HYDROCORTISONE 1% TOPICAL CREAM 30 GM TUBE TP PRN (18:53)
[2023-05-24] MEDS: traZODone HCL 50 MG TABLET (FP) PO SCH (21:06)
[2023-05-25] MEDS ORDERED: LORazepam 1 MG TABLET PO SCH (05:00)
[2023-05-25] MEDS: LORazepam 1 MG TABLET PO SCH (05:40)
[2023-05-25] MEDS: LORazepam 1 MG TABLET PO PRN (13:23)
[2023-05-26] MEDS ORDERED: LORazepam 0.5 MG TABLET PO PRN ×2
[2023-05-26] MEDS: LORazepam 0.5 MG TABLET PO SCH (04:30)
[2023-05-26] MEDS ORDERED: LORazepam 0.5 MG TABLET PO SCH (05:00)
[2023-05-26] MEDS: hydrOXYzine PAMOATE 25 MG CAPSULE (FP) PO PRN (16:00)
[2023-05-26] MEDS: ACETAMINOPHEN 325 MG TABLET (FP) PO PRN (17:14)
[2023-05-27] MEDS ORDERED: LORazepam 0.5 MG TABLET PO ONE (05:00)
[2023-05-27] MEDS: LORazepam 0.5 MG TABLET PO ONE (05:58)
[2023-05-27 09:09] VITALS: BP 107/64; PULSE 65; RESP 18; TEMP 97.6
== END 2023-05-27 09:12 | disposition home or self-care (01) | DRG 773 ==
LOC: YASAS 17:57 → Y3N 05-24 02:30
PROVIDERS: ADMIT Allergy & Immunology; ATTEND Allergy & Immunology
PROC: HZ2ZZZZ Detoxification Services for Substance Abuse Treatment (ICD-10-PCS; principal; 2023-05-24)
DX: F10.230 Alcohol dependence with withdrawal, uncomplicated (principal); F11.20 Opioid dependence, uncomplicated; F14.20 Cocaine dependence, uncomplicated; F17.210 Nicotine dependence, cigarettes, uncomplicated; F31.9 Bipolar disorder, unspecified; F19.24 Other psychoactive substance dependence with psychoactive substance-induced mood disorder; U07.1 COVID-19; G40.909 Epilepsy, unspecified, not intractable, without status epilepticus; J45.20 Mild intermittent asthma, uncomplicated; Z86.79 Personal history of other diseases of the circulatory system; Z91.410 Personal history of adult physical and sexual abuse; Z63.0 Problems in relationship with spouse or partner
CPT/HCPCS: 36415; 80053; 80307; 81025; 85027; 86780; 87635; 87811; 93005; 93010